=== PATIENT | female | born 1935 | race Two or more races ===

== ENCOUNTER 2016-08-12 14:44 | Inpatient (IN) | payer MEDICARE, OTHER ==
[~2016-08-12] VITALS: Ht 167.6 cm; Wt 63.5 kg
[2016-08-12 16:18] LABS: BASOPHILS % 0.4 % (0.0-2.0); EOSINOPHILS % 0.1 % (0.0-5.0); HEMATOCRIT. 45.3 % (36.0-48.0); HEMOGLOBIN. 15.1 g/dL (12.0-16.0); LYMPHOCYTES % 7.5 % (20.0-50.0); MEAN CORPUSCULAR HEMOGLOBIN 30.7 pg (28.0-32.0); MEAN CORPUSCULAR HGB CONC 33.3 g/dL (31.0-37.0); MEAN CORPUSCULAR VOLUME 92.3 fL (81.0-99.0); MEAN PLATELET VOLUME 8.6 fl (7.4-10.4); MONOCYTES % 8.3 % (2.0-8.0); NEUTROPHILS % 83.7 % (40.0-76.0); PLATELET 160 x1000/uL (130-400); RED BLOOD CELL COUNT 4.91 mill/uL (4.2-5.4); RED CELL DISTRIBUTION WIDTH 16.1 % (11.6-14.6); WHITE BLOOD COUNT 6.6 x1000/uL (4.5-11.0)
[2016-08-12 16:33] LABS: ALANINE AMINOTRANSFERASE 13 IU/L (13-61); ALBUMIN 3.2 g/dL (3.4-5.0); ANION GAP 17; BETA HYDROXYBUTYRATE 1.3 mMol/L (0.0-0.3); CARBON DIOXIDE 20 mEq/L (21-32); CHLORIDE 98 mEq/L (98-107); INDEX HEMOLYSI 1 (1-3); INDEX ICTERIC 2 (1-4); INDEX LIPEMIC 1 (1-3); LIPASE 896 IU/L (73-393); TROPONIN I 0.05 ng/mL (0.00-0.04); UREA NITROGEN BLOOD 66 mg/dL (7-21); eGFR 31 mL/min (>60)
[2016-08-12] MEDS ORDERED: SODIUM CHLORIDE 0.9% 1,000 ML IV ONE ×2 (17:26→17:30)
[2016-08-12] MEDS ORDERED: INSULIN REGULAR (HUMULIN R) 300UNITS/3ML IV ONE (17:30)
[2016-08-12 18:08] LABS: CLARITY URINE TURBID (CLEAR); COLOR URINE YELLOW (YELLOW); GLUCOSE URINE 2+ (NEGATIVE); KETONES URINE NEGATIVE (NEGATIVE); LEUKOCYTE ESTERASE URINE 3+ (NEGATIVE); NITRITE URINE NEGATIVE (NEGATIVE); OCCULT BLOOD URINE TRACE (NEGATIVE); PROTEIN URINE 2+ (NEGATIVE); SPECIFIC GRAVITY URINE 1.013 (1.005-1.030); UROBILINOGEN URINE 0.2 E.U./dL (0.2-1.0)
[2016-08-12 18:27] LABS: BACTERIA URINE 4+; SQUAMOUS EPITHELIAL CELL URINE NONE SEEN /lpf (RARE/1+); WBC URINE 25-50 /hpf (0-2)
[2016-08-12 18:33] LABS: MAGNESIUM 2.4 mg/dL (1.8-2.4)
[2016-08-12] MEDS ORDERED: SODIUM CHLORIDE 0.45% 1,000 ML IV SCH (18:56)
[2016-08-12] MEDS ORDERED: ONDANSETRON HCL 4MG/2ML VIAL IV PRN (19:00)
[2016-08-12] MEDS ORDERED: DOCUSATE SODIUM 100MG CAPSULE PO PRN (19:00)
[2016-08-12] MEDS ORDERED: DIPHENHYDRAMINE 50MG/ML VIAL IV PRN (19:00)
[2016-08-12] MEDS ORDERED: ACETAMINOPHEN 325MG TABLET PO PRN (19:00)
[2016-08-12] MEDS ORDERED: NA PHOS,M-B/NA PHOS,DI-BA ENEMA 118ML PR PRN (19:00)
[2016-08-12] MEDS ORDERED: HYDROCODONE/ACETAMINOPHEN 5/325MG TABLET PO PRN (19:00)
[2016-08-12] MEDS ORDERED: INSULIN REGULAR (HUMULIN R) 300UNITS/3ML SUBCUT ONE (19:00)
[2016-08-12] MEDS ORDERED: ACETAMINOPHEN 650MG/20.3ML UDC GT PRN (19:00)
[2016-08-12] MEDS ORDERED: ACETAMINOPHEN 650MG SUPP PR PRN (19:00)
[2016-08-12] MEDS ORDERED: GUAIFENESIN 200MG/10ML SUGAR FREE UDC PO PRN (19:00)
[2016-08-12] MEDS ORDERED: CEFTRIAXONE 1 G PREMIX 50 ML IV ONE (19:00)
[2016-08-12] MEDS ORDERED: IPRATROPIUM/ALBUTEROL 0.5-3(2.5)MG/3ML NEB INH PRN (19:00)
[2016-08-12] MEDS ORDERED: MAGNESIUM/ALUMINUM HYDROXIDE/SIMETHICONE 30ML UDC PO PRN (19:00)
[2016-08-12 19:25] LABS: ALANINE AMINOTRANSFERASE 10 IU/L (13-61); ALBUMIN 2.7 g/dL (3.4-5.0); ANION GAP 17; CARBON DIOXIDE 18 mEq/L (21-32); CHLORIDE 102 mEq/L (98-107); INDEX HEMOLYSI 4 (1-3); INDEX ICTERIC 2 (1-4); INDEX LIPEMIC 1 (1-3); UREA NITROGEN BLOOD 63 mg/dL (7-21)
[2016-08-12 19:27] LABS: eGFR 36 mL/min (>60)
[2016-08-12] MEDS ORDERED: INSULIN REGULAR (DRIP) 100 UNITS in SODIUM CHLORIDE 0.9% 99 ML IV SCH (19:30)
[2016-08-12 20:24] LABS: CALCIUM 8.3 mg/dL (8.5-10.1); PHOSPHORUS 2.3 mg/dL (2.5-4.9)
[2016-08-12] MEDS: SODIUM CHLORIDE 0.9% INJ 3ML FLUSH IVF SCH (22:00)
[2016-08-12 23:00] VITALS: BP_SYST 139; BP_SYST 144; BP_DIAS 73; BP_DIAS 79
[2016-08-12] MEDS ORDERED: INSULIN REGULAR (DRIP) 100 UNITS in SODIUM CHLORIDE 0.9% 100 ML IV SCH (23:12)
[2016-08-12 23:15] VITALS: BP 146/76
[2016-08-12] MEDS: BLOOD SUGAR DIAGNOSTIC STRIP TEST SCH (23:15)
[2016-08-12] MEDS ORDERED: DEXTROSE 50% WATER 50ML SYRINGE IV PRN ×2 (23:15)
[2016-08-12 23:30] VITALS: BP 151/82
[2016-08-12 23:45] VITALS: BP 147/75
[2016-08-13] VITALS (26 sets, daily range): BP systolic 116–149; BP diastolic 48–90
[2016-08-13] MEDS: BLOOD SUGAR DIAGNOSTIC STRIP TEST SCH ×13 (00:47→20:48)
[2016-08-13 01:36] LABS: PHOSPHORUS 2.3 mg/dL (2.5-4.9)
[2016-08-13 01:37] LABS: PHOSPHORUS 2.4 mg/dL (2.5-4.9)
[2016-08-13 01:46] LABS: INR 1.3; PROTHROMBIN TIME 14.1 sec
[2016-08-13] MEDS: DEXT 5%/0.45% NACL 1000ML 1,000 ML IV SCH ×4 (02:34→20:47)
[2016-08-13 05:30] LABS: HEMATOCRIT. 41.9 % (36.0-48.0); HEMOGLOBIN. 13.8 g/dL (12.0-16.0); MEAN CORPUSCULAR HEMOGLOBIN 30.8 pg (28.0-32.0); MEAN CORPUSCULAR VOLUME 93.1 fL (81.0-99.0); MEAN PLATELET VOLUME 9.1 fl (7.4-10.4); PLATELET 135 x1000/uL (130-400); RED CELL DISTRIBUTION WIDTH 16.7 % (11.6-14.6); WHITE BLOOD COUNT 5.8 x1000/uL (4.5-11.0)
[2016-08-13] MEDS: SODIUM CHLORIDE 0.9% INJ 3ML FLUSH IVF SCH ×2 (05:35→14:05)
[2016-08-13 05:47] LABS: ALANINE AMINOTRANSFERASE 9 IU/L (13-61); ALBUMIN 2.7 g/dL (3.4-5.0); ANION GAP 14; CALCIUM 8.1 mg/dL (8.5-10.1); CARBON DIOXIDE 22 mEq/L (21-32); CHLORIDE 103 mEq/L (98-107); INDEX HEMOLYSI 1 (1-3); INDEX ICTERIC 1 (1-4); INDEX LIPEMIC 1 (1-3); UREA NITROGEN BLOOD 60 mg/dL (7-21); eGFR 33 mL/min (>60)
[2016-08-13 06:02] LABS: DIFFERENTIAL COMMENT 1
[2016-08-13 07:16] LABS: ANISOCYTOSIS 1+; NUCLEATED RED BLOOD CELLS 1 /100 WBC; PLATELET ESTIMATE NORMAL
[2016-08-13 09:37] LABS: T4 FREE 1.29 ng/dL (0.76-1.46); THYROID STIMULATING HORMONE 5.4 uIU/mL (0.36-3.74)
[2016-08-13] MEDS: AMLODIPINE 5MG TABLET PO SCH ×3 (10:30→20:58)
[2016-08-13 11:12] LABS: *AMPHETAMINES SCREEN URINE NEGATIVE (NEGATIVE); *BARBITURATES SCREEN URINE NEGATIVE (NEGATIVE); *BENZODIAZEPINES SCREEN URINE NEGATIVE (NEGATIVE); *COCAINE SCREEN URINE NEGATIVE (NEGATIVE); CANNABINOID URINE SCREEN NEGATIVE (NEGATIVE); ECSTASY MDMA SCREEN URINE NEGATIVE (NEGATIVE); METHADONE URINE SCREEN NEGATIVE (NEGATIVE); OPIATES URINE SCREEN NEGATIVE (NEGATIVE); PHENCYCLIDINE URINE SCREEN NEGATIVE (NEGATIVE)
[2016-08-13] MEDS ORDERED: DEXTROSE 50% WATER 50ML SYRINGE IV PRN (14:15)
[2016-08-13] MEDS: INSULIN DETEMIR UD 100 UNITS/ML SYR SUBCUT SCH ×2 (14:54→20:47)
[2016-08-13] MEDS ORDERED: VANCOMYCIN 750 MG PREMIX 150 ML IV SCH (15:00)
[2016-08-13 16:20] LABS: CREATINE KINASE MB FRACTION 3.3 ng/mL (0.5-3.6); TROPONIN I 0.08 ng/mL (0.00-0.04)
[2016-08-13] MEDS ORDERED: LOSARTAN POTASSIUM 50 MG TABLET PO SCH (16:30)
[2016-08-13] MEDS: INSULIN LISPRO 100 UNITS/ML SUBCUT SCH ×2 (18:20→20:56)
[2016-08-13] MEDS ORDERED: CARVEDILOL 3.125 MG TABLET PO SCH (21:00)
== END 2016-08-13 22:07 | disposition short-term general hospital (02) | DRG 637 ==
LOC: ER 16:30 → CVICU 22:44
PROVIDERS: ADMIT Family Medicine; ATTEND Family Medicine
DX: E13.10 Other specified diabetes mellitus with ketoacidosis without coma (principal); N17.0 Acute kidney failure with tubular necrosis; E43 Unspecified severe protein-calorie malnutrition; N39.0 Urinary tract infection, site not specified; I42.9 Cardiomyopathy, unspecified; E87.1 Hypo-osmolality and hyponatremia; I38 Endocarditis, valve unspecified; I13.10 Hypertensive heart and chronic kidney disease without heart failure, with stage 1 through stage 4 chronic kidney disease, or unspecified chronic kidney disease; E11.21 Type 2 diabetes mellitus with diabetic nephropathy; E11.22 Type 2 diabetes mellitus with diabetic chronic kidney disease; E87.6 Hypokalemia; E78.5 Hyperlipidemia, unspecified; I25.10 Atherosclerotic heart disease of native coronary artery without angina pectoris; N18.9 Chronic kidney disease, unspecified; I25.2 Old myocardial infarction; Z68.22 Body mass index [BMI] 22.0-22.9, adult
CPT/HCPCS: 36415; 51702; 71010; 78580; 80048; 80053; 80061; 80305; 81001; 82010; 82550; 82553; 82962; 83036; 83690; 83735; 83880; 84100; 84439; 84443; 84484; 85025; 85379; 85610; 87040; 87086; 93005; 93306; 93970; 96361; 96374; 96375; 97162; 99285; A6261; J0696; J1815; J2405; J3370; J3490; J7030; J7050